=== PATIENT | male | born 2000 | race Caucasian/White ===

== ENCOUNTER 2020-06-18 12:17 | Emergency (ER) | payer SELFPAY ==
[~2020-06-18] VITALS: Ht 172.7 cm; Wt 82.6 kg
[2020-06-18 12:23] VITALS: BP 107/56
--- NOTE | 2020-06-18 12:52 | NUR ---
C/O ABSCESS TO LEFT EAR X 4 DAYS.PT AOX4 , AFIBRILE , AMBULATORY WITH STEADY GAIT , PINK PALPEBRAL CONJUNCTIVA , ANICTERIC SCLERA , LEFT EAR BUMP , NO DISCHARGE NOTED, DENIES RINGING SENSATION NOR PAIN. MED HX: DENIES
--- NOTE | 2020-06-18 13:00 | NUR ---
DR JOSE AT BEDSIDE EVALUATING PT.
[2020-06-18] MEDS ORDERED: LIDOCAINE MPF 1% 10 MG/ML VIAL INJ ONE (13:05)
--- NOTE | 2020-06-18 13:34 | NUR ---
dr pryor at bedside ayala Cruz.
--- NOTE | 2020-06-18 14:00 | NUR ---
Patient discharged with v/s stable. Written and verbal after care instructions given and explained. Patient verbalized understanding. Ambulatory with steady gait. All questions addressed prior to discharge. Advised to follow up with PMD.
[2020-06-18 14:01] VITALS: BP 107/56
== END 2020-06-18 14:00 | disposition home or self-care (01) ==
LOC: MED 12:17
DX: L02.11 Cutaneous abscess of neck (principal)
CPT/HCPCS: 10060; 99282; J2001

== ENCOUNTER 2021-05-13 03:18 | Emergency (ER) | payer SELFPAY ==
[~2021-05-13] VITALS: Ht 172.7 cm; Wt 81.6 kg
[2021-05-13 03:30] VITALS: BP 123/81
--- NOTE | 2021-05-13 03:30 | NUR ---
to bed ambulatory
--- NOTE | 2021-05-13 04:00 | NUR ---
PATIENT DOES NOT WANT ANY PAIN MEDICATION AT THIS TIME.
--- NOTE | 2021-05-13 04:00 | NUR ---
21 YO/M BIB SELF W CO OF R TESTICULAR PAIN 4/10 SHARP X1 DAYS, REPORTS PAIN COMES AND GOES AND GOES UP TO 9/10, NON-RADIATING. PATIENT DENIES ANY SWELLING, FEVERS, N/V/D. PATIENT DENIES ANY URINARY PROBLEMS, NO BURNING, FREQUENCY, OR OTHER SYMPTOMS. PATIENT DENIES AND TRAUMA TO GROIN AREA. PATIENT LAYING IN BED LOCKED INLOWEST POSITION, X1 SIDE RAIL UP. BREATHING EVEN AND UNLABORED, NAD NOTED, WILL CONTINUE TO MONITOR. PMH:DENIES NLA
--- NOTE | 2021-05-13 04:05 | NUR ---
PATIENT AMBULATED TO BATHROOM W STEADY GAIT.
--- NOTE | 2021-05-13 05:25 | NUR ---
ULTRASOUND AT BEDSIDE
--- NOTE | 2021-05-13 06:10 | NUR ---
PATIENT LAYING IN BED AWAKE, HOB ELEVATED. X1 SIDE RAIL UP, BED LOCKED IN LOWEST POSITION. BREATHING EVEN AND UNLABORED, DENIES ANY PAIN. NAD NOTED, WILL CONTINUE TO MONITOR.
[2021-05-13] MEDS ORDERED: IBUP-2213 PO (06:42)
[2021-05-13 06:49] VITALS: BP 139/81
== END 2021-05-13 06:49 | disposition home or self-care (01) ==
LOC: MED 03:18
DX: N45.1 Epididymitis (principal); N50.811 Right testicular pain
CPT/HCPCS: 36415; 76870; 81002; 87491; 99284